=== PATIENT | female | born 1975 | race Caucasian/White ===

== ENCOUNTER 2016-04-12 19:53 | Emergency (ER) | payer MEDICAID ==
[2016-04-12 23:24] LABS: APPEARANCE HAZY (CLEAR); BILIRUBIN NEGATIVE (NEGATIVE); COLOR YELLOW (YELLOW); GLUCOSE NEGATIVE (NEGATIVE); KETONE NEGATIVE (NEGATIVE); LEUKOCYTE ESTERASE NEGATIVE (NEGATIVE); NITRITE NEGATIVE (NEGATIVE); PROTEIN NEGATIVE (NEGATIVE); SPECIFIC GRAVITY 1.015 (1.005-1.020); UROBILINOGEN NORMAL (NORMAL)
== END 2016-04-12 23:47 | disposition home or self-care (01) ==
LOC: D.ER 19:53
PROVIDERS: Physician Assistant Medical
DX: M54.5 Low back pain (principal); F17.200 Nicotine dependence, unspecified, uncomplicated

== ENCOUNTER 2016-05-11 19:45 | Emergency (ER) | payer MEDICAID | END 2016-05-11 21:20 | disposition home or self-care (01) | LOC: D.ER 19:45 | DX: S39.012A Strain of muscle, fascia and tendon of lower back, initial encounter (principal); X58.XXXA Exposure to other specified factors, initial encounter; Y93.89 Activity, other specified; Y92.89 Other specified places as the place of occurrence of the external cause; F17.200 Nicotine dependence, unspecified, uncomplicated ==

== ENCOUNTER 2016-05-26 18:44 | Emergency (ER) | payer MEDICAID ==
[2016-05-26 19:28] LABS: APPEARANCE HAZY (CLEAR); BILIRUBIN NEGATIVE (NEGATIVE); COLOR YELLOW (YELLOW); GLUCOSE NEGATIVE (NEGATIVE); KETONE NEGATIVE (NEGATIVE); LEUKOCYTE ESTERASE NEGATIVE (NEGATIVE); NITRITE NEGATIVE (NEGATIVE); PROTEIN NEGATIVE (NEGATIVE); SPECIFIC GRAVITY 1.015 (1.005-1.020); UROBILINOGEN NORMAL (NORMAL)
[2016-05-26 19:31] LABS: WHITE CELLS - URINE 0-5 /hpf (0-5)
[2016-05-26 19:32] LABS: BACTERIA FEW /hpf (NONE SEEN)
== END 2016-05-26 19:46 | disposition home or self-care (01) ==
LOC: D.ER 18:44
PROVIDERS: Emergency Medicine
DX: M54.5 Low back pain (principal); F17.200 Nicotine dependence, unspecified, uncomplicated; R00.0 Tachycardia, unspecified; I49.3 Ventricular premature depolarization

== ENCOUNTER 2016-06-30 20:06 | Emergency (ER) | payer MEDICAID | END 2016-07-01 01:35 | disposition home or self-care (01) | LOC: D.ER 20:06 | DX: M25.562 Pain in left knee (principal); M25.572 Pain in left ankle and joints of left foot; W19.XXXA Unspecified fall, initial encounter; Y93.89 Activity, other specified; Y92.89 Other specified places as the place of occurrence of the external cause; F17.200 Nicotine dependence, unspecified, uncomplicated ==

== ENCOUNTER 2016-07-07 23:48 | Emergency (ER) | payer MEDICAID | END 2016-07-08 00:32 | disposition home or self-care (01) | LOC: D.ER 23:48 | DX: S39.92XA Unspecified injury of lower back, initial encounter (principal); X58.XXXA Exposure to other specified factors, initial encounter; Y93.89 Activity, other specified; Y92.89 Other specified places as the place of occurrence of the external cause ==

== ENCOUNTER 2016-07-29 19:24 | Emergency (ER) | payer MEDICAID | END 2016-07-29 20:14 | disposition home or self-care (01) | LOC: D.ER 19:24 | DX: S86.912A Strain of unspecified muscle(s) and tendon(s) at lower leg level, left leg, initial encounter (principal); X58.XXXA Exposure to other specified factors, initial encounter; Y93.89 Activity, other specified; Y92.89 Other specified places as the place of occurrence of the external cause ==

== ENCOUNTER 2016-09-14 14:37 | Emergency (ER) | payer MEDICAID | END 2016-09-14 20:00 | disposition home or self-care (01) | LOC: D.ER 14:37 | DX: M25.572 Pain in left ankle and joints of left foot (principal); M77.9 Enthesopathy, unspecified ==

== ENCOUNTER 2016-11-12 01:22 | Emergency (ER) | payer MEDICAID | END 2016-11-12 02:05 | disposition home or self-care (01) | LOC: D.ER 01:22 | DX: E84.9 Cystic fibrosis, unspecified (principal); R06.00 Dyspnea, unspecified ==

== ENCOUNTER 2016-12-09 06:27 | Emergency (ER) | payer MEDICAID | END 2016-12-09 07:50 | disposition home or self-care (01) | LOC: D.ER 06:27 | DX: M54.5 Low back pain (principal); F17.200 Nicotine dependence, unspecified, uncomplicated ==

== ENCOUNTER 2017-01-25 01:45 | Emergency (ER) | payer MEDICAID | END 2017-01-25 02:15 | disposition home or self-care (01) | LOC: D.ER 01:45 | DX: S50.02XA Contusion of left elbow, initial encounter (principal); W22.8XXA Striking against or struck by other objects, initial encounter; Y93.89 Activity, other specified; Y92.029 Unspecified place in mobile home as the place of occurrence of the external cause ==

== ENCOUNTER 2017-02-24 00:53 | Emergency (ER) | payer MEDICAID | END 2017-02-24 02:04 | disposition home or self-care (01) | LOC: D.ER 00:53 | DX: L02.31 Cutaneous abscess of buttock (principal) ==

== ENCOUNTER 2017-03-06 16:51 | Emergency (ER) | payer MEDICAID | END 2017-03-06 18:37 | disposition home or self-care (01) | LOC: D.ER 16:51 | DX: K04.7 Periapical abscess without sinus (principal); K08.89 Other specified disorders of teeth and supporting structures ==

== ENCOUNTER 2017-07-07 21:20 | Emergency (ER) | payer MEDICAID | END 2017-07-07 22:47 | disposition home or self-care (01) | LOC: D.ER 21:20 | DX: S29.012A Strain of muscle and tendon of back wall of thorax, initial encounter (principal); V89.2XXA Person injured in unspecified motor-vehicle accident, traffic, initial encounter; Y93.89 Activity, other specified; Y92.410 Unspecified street and highway as the place of occurrence of the external cause; F17.200 Nicotine dependence, unspecified, uncomplicated ==

== ENCOUNTER 2017-08-20 13:16 | Emergency (ER) | payer MEDICAID ==
[2017-08-20 15:44] LABS: BASOPHILS 0.3 % (0-2); EOSINOPHILS 0.7 % (0-7); HEMATOCRIT 37.5 % (36.0-48.0); HEMOGLOBIN 12.1 g/dL (12-16); IMMATURE GRANULOCYTES 0.2 % (0-5); LYMPHOCYTES 35.1 % (15-50); MCH 25.6 pg (26.0-34.0); MCHC 32.3 g/dL (31.0-37.0); MCV 79.3 fL (80.0-100.0); MEAN PLATELET VOLUME 10.3 fL (7.4-10.4); MONOCYTES 6.3 % (2-11); NEUTROPHILS 57.4 % (40-80); RBC 4.73 10x6/uL (4.00-5.40); RDW 17.1 % (11.5-14.5); WBC 9.7 10x3/uL (4.8-10.8)
[2017-08-20 15:45] LABS: APPEARANCE CLEAR (CLEAR); BILIRUBIN NEGATIVE (NEGATIVE); COLOR YELLOW (YELLOW); GLUCOSE NEGATIVE (NEGATIVE); KETONE NEGATIVE (NEGATIVE); NITRITE NEGATIVE (NEGATIVE); PROTEIN NEGATIVE (NEGATIVE); RED CELLS - URINE 0-5 /hpf (0-5); UROBILINOGEN NORMAL (NORMAL); WHITE CELLS - URINE 0-5 /hpf (0-5)
[2017-08-20 15:46] LABS: BACTERIA MANY /hpf (NONE SEEN)
[2017-08-20 16:01] LABS: HCG SERUM NEGATIVE (NEGATIVE)
[2017-08-20 16:05] LABS: ALBUMIN 3.6 g/dL (3.4-5.0); ALKALINE PHOSPHATASE 79 U/L (46-116); ALT (SGPT) 22 U/L (10-68); BILIRUBIN - TOTAL 0.29 mg/dL (0.2-1.3); CALC OSMOLALITY 275 mosm/kg (275-300); CALCIUM 9.1 mg/dL (8.5-10.1); CARBON DIOXIDE 27.7 mmol/L (21.0-32.0); CHLORIDE - SERUM 103 mmol/L (98-107); CREATININE - SERUM 0.8 mg/dL (0.6-1.3); GLUCOSE 102 mg/dL (74-106); PROTEIN - SERUM 7.4 g/dL (6.4-8.2); SODIUM 139 mmol/L (136-145); UREA NITROGEN 7 mg/dL (7-18); eGFR NON AFRICAN AMERICAN 84 mL/min (90-120)
[2017-08-20 16:10] LABS: PLATELET COUNT 278 10x3/uL (130-400)
== END 2017-08-20 17:04 | disposition home or self-care (01) ==
LOC: D.ER 13:16
PROVIDERS: Physician Assistant
DX: R10.30 Lower abdominal pain, unspecified (principal); N93.9 Abnormal uterine and vaginal bleeding, unspecified; E87.6 Hypokalemia; F17.200 Nicotine dependence, unspecified, uncomplicated

== ENCOUNTER 2017-09-27 01:20 | Emergency (ER) | payer MEDICAID ==
[~2017-09-27] VITALS: Ht 170.2 cm; Wt 70.5 kg
[2017-09-27 01:28] VITALS: Ht 170.2 cm; Wt 70.5 kg
[2017-09-27] MEDS ORDERED: ROBAXIN500 MG (01:30)
[2017-09-27] MEDS ORDERED: NAPROSYN500 MG PO (03:05)
[2017-09-27 03:20] VITALS: BP 137/84
== END 2017-09-27 03:21 | disposition home or self-care (01) ==
LOC: D.ER 01:20
DX: S43.402A Unspecified sprain of left shoulder joint, initial encounter (principal); X58.XXXA Exposure to other specified factors, initial encounter; Y93.89 Activity, other specified; Y92.89 Other specified places as the place of occurrence of the external cause; M75.92 Shoulder lesion, unspecified, left shoulder; F17.200 Nicotine dependence, unspecified, uncomplicated

== ENCOUNTER 2017-10-04 02:08 | Emergency (ER) | payer MEDICAID ==
[~2017-10-04] VITALS: Ht 170.2 cm; Wt 68.2 kg
[~2017-10-04 02:08] MED LIST: NAPROSYN500 MG PO; ROBAXIN500 MG
[2017-10-04 02:12] VITALS: Ht 170.2 cm; Wt 68.2 kg
[2017-10-04] MEDS ORDERED: HYDROCODON-ACE1 EAC7 PO (02:44)
[2017-10-04 02:59] VITALS: BP 133/82
== END 2017-10-04 03:00 | disposition home or self-care (01) ==
LOC: D.ER 02:08
DX: M75.102 Unspecified rotator cuff tear or rupture of left shoulder, not specified as traumatic (principal); F17.200 Nicotine dependence, unspecified, uncomplicated

== ENCOUNTER 2017-11-28 12:45 | Emergency (ER) | payer MEDICAID ==
[~2017-11-28] VITALS: Ht 170.2 cm; Wt 68.2 kg
[~2017-11-28 12:45] MED LIST changes: +HYDROCODON-ACE1 EAC7 PO
[2017-11-28 12:48] VITALS: Ht 170.2 cm; Wt 68.2 kg
[2017-11-28] MEDS ORDERED: PREDNISONE20 MG PO (14:03)
[2017-11-28 14:48] VITALS: BP 112/65
== END 2017-11-28 14:49 | disposition home or self-care (01) ==
LOC: D.ER 12:45
DX: M25.512 Pain in left shoulder (principal); F17.200 Nicotine dependence, unspecified, uncomplicated; M25.522 Pain in left elbow

== ENCOUNTER 2018-01-24 16:49 | Emergency (ER) | payer MEDICAID ==
[~2018-01-24] VITALS: Ht 170.2 cm; Wt 72.7 kg
[~2018-01-24 16:49] MED LIST changes: +PREDNISONE20 MG PO
[2018-01-24 16:54] VITALS: Ht 170.2 cm; Wt 72.7 kg
[2018-01-24] MEDS ORDERED: TORADOL10 MG PO (18:38)
[2018-01-24 19:07] VITALS: BP 126/72
== END 2018-01-24 19:07 | disposition home or self-care (01) ==
LOC: D.ER 16:49
DX: S40.011A Contusion of right shoulder, initial encounter (principal); S50.01XA Contusion of right elbow, initial encounter; X58.XXXA Exposure to other specified factors, initial encounter; Y93.89 Activity, other specified; Y92.89 Other specified places as the place of occurrence of the external cause

== ENCOUNTER 2018-02-20 12:35 | Emergency (ER) | payer MEDICAID ==
[~2018-02-20] VITALS: Ht 170.2 cm; Wt 74.1 kg
[~2018-02-20 12:35] MED LIST changes: +TORADOL10 MG PO
[2018-02-20 12:39] VITALS: Ht 170.2 cm; Wt 74.1 kg
[2018-02-20] MEDS ORDERED: ZPAK PO (13:08)
[2018-02-20] MEDS ORDERED: FLUTICASONE PRO16 GM NASAL (13:08)
[2018-02-20] MEDS ORDERED: EC-NAPROSYN500 MG PO (13:08)
[2018-02-20 13:28] VITALS: BP 132/88
== END 2018-02-20 13:29 | disposition home or self-care (01) ==
LOC: D.ER 12:35
DX: R51 Headache (principal); R11.0 Nausea; F17.200 Nicotine dependence, unspecified, uncomplicated

== ENCOUNTER 2018-08-06 00:38 | Emergency (ER) | payer MEDICAID ==
[~2018-08-06 00:38] MED LIST changes: +EC-NAPROSYN500 MG PO; +FLUTICASONE PRO16 GM NASAL; +ZPAK PO
[2018-08-06 00:50] VITALS: BMI 24.6
[2018-08-06] MEDS ORDERED: TYLENOL W/CODEI1 TAB PO (01:03)
[2018-08-06 01:47] VITALS: BP 139/80
== END 2018-08-06 01:48 | disposition home or self-care (01) ==
LOC: D.ER 00:38
DX: M25.562 Pain in left knee (principal); M25.552 Pain in left hip; M25.551 Pain in right hip

== ENCOUNTER 2018-10-09 12:45 | Emergency (ER) | payer MEDICAID ==
[~2018-10-09] VITALS: Ht 170.2 cm; Wt 80.0 kg
[~2018-10-09 12:45] MED LIST changes: +TYLENOL W/CODEI1 TAB PO
[2018-10-09 12:52] VITALS: Ht 170.2 cm; Wt 80.0 kg
[2018-10-09 13:34] LABS: BASOPHILS 0.1 % (0-2); EOSINOPHILS 0.7 % (0-7); HEMATOCRIT 38.5 % (36.0-48.0); HEMOGLOBIN 12.7 g/dL (12-16); IMMATURE GRANULOCYTES 0.2 % (0-5); LYMPHOCYTES 16.7 % (15-50); MCH 28.9 pg (26.0-34.0); MCV 87.7 fL (80.0-100.0); MEAN PLATELET VOLUME 10.4 fL (7.4-10.4); MONOCYTES 6.8 % (2-11); NEUTROPHILS 75.5 % (40-80); RBC 4.39 10x6/uL (4.00-5.40); RDW 14.4 % (11.5-14.5); WBC 8.8 10x3/uL (4.8-10.8)
[2018-10-09 13:39] LABS: PLATELET COUNT 210 10x3/uL (130-400)
[2018-10-09 13:40] LABS: APPEARANCE CLOUDY (CLEAR); BILIRUBIN NEGATIVE (NEGATIVE); COLOR YELLOW (YELLOW); GLUCOSE NEGATIVE (NEGATIVE); KETONE NEGATIVE (NEGATIVE); NITRITE POSITIVE (NEGATIVE); PROTEIN 3+ mg/dL (NEGATIVE); SPECIFIC GRAVITY 1.015 (1.005-1.020); UROBILINOGEN NORMAL (NORMAL)
[2018-10-09 13:44] LABS: BACTERIA MODERATE /hpf (NONE SEEN); EPITHELIAL CELLS 0-5 /hpf (0-5)
[2018-10-09 14:11] LABS: ALBUMIN 3.6 g/dL (3.4-5.0); ALKALINE PHOSPHATASE 83 U/L (46-116); ALT (SGPT) 25 U/L (10-68); CALC OSMOLALITY 277 mosm/kg (275-300); CALCIUM 8.7 mg/dL (8.5-10.1); CARBON DIOXIDE 27.8 mmol/L (21.0-32.0); CHLORIDE - SERUM 103 mmol/L (98-107); CREATININE - SERUM 0.8 mg/dL (0.6-1.3); GLUCOSE 90 mg/dL (74-106); POTASSIUM - SERUM 3.4 mmol/L (3.5-5.1); PROTEIN - SERUM 7.1 g/dL (6.4-8.2); SODIUM 139 mmol/L (136-145); UREA NITROGEN 12 mg/dL (7-18); eGFR NON AFRICAN AMERICAN 83 mL/min (90-120)
[2018-10-09] MEDS ORDERED: MACROBID100 MG PO (14:16)
[2018-10-09] MEDS ORDERED: PHENAZOPYRIDIN100 MG PO (14:16)
[2018-10-09] MEDS ORDERED: ROBAXIN500 MG PO (14:16)
[2018-10-09 15:04] VITALS: BP 142/80
== END 2018-10-09 15:06 | disposition home or self-care (01) ==
LOC: D.ER 12:45
PROVIDERS: Emergency Medicine
DX: N39.0 Urinary tract infection, site not specified (principal); M54.5 Low back pain

== ENCOUNTER 2019-03-04 11:49 | Emergency (ER) | payer MEDICAID ==
[~2019-03-04] VITALS: Ht 170.2 cm; Wt 75.0 kg
[~2019-03-04 11:49] MED LIST changes: +MACROBID100 MG PO; +PHENAZOPYRIDIN100 MG PO; +ROBAXIN500 MG PO
[2019-03-04 11:54] VITALS: Ht 170.2 cm; Wt 75.0 kg
[2019-03-04] MEDS ORDERED: TAMIFLU75 MG PO (12:51)
[2019-03-04 13:06] VITALS: BP 126/72
== END 2019-03-04 13:07 | disposition home or self-care (01) ==
LOC: D.ER 11:49
DX: J11.1 Influenza due to unidentified influenza virus with other respiratory manifestations (principal); Z72.0 Tobacco use

== ENCOUNTER 2020-08-29 04:13 | Emergency (ER) | payer OTHER ==
[~2020-08-29] VITALS: Ht 170.2 cm; Wt 71.4 kg
[~2020-08-29 04:13] MED LIST changes: +AUGMENTIN 875-11 TAB PO; +FLOXIN 0.3 % OTI5 ML LEFT EAR; +TAMIFLU75 MG PO
[2020-08-29 04:17] VITALS: BP 129/81; Ht 170.2 cm; Wt 71.4 kg
[2020-08-29] MEDS ORDERED: CELEBREX50 MG PO (05:08)
== END 2020-08-29 05:25 | disposition home or self-care (01) ==
LOC: D.ER 04:13
DX: M25.512 Pain in left shoulder (principal); M25.812 Other specified joint disorders, left shoulder